=== PATIENT | male | born 1950 | race Two or more races ===

== ENCOUNTER 2025-10-03 15:57 | Emergency (ER) | payer OTHER ==
[~2025-10-03] VITALS: Ht 170.2 cm; Wt 68.0 kg
[2025-10-03] MEDS ORDERED: HYOSCYAMINE SULFATE 0.125 MG TAB.SUBL SL ONE (17:30)
[2025-10-03] MEDS ORDERED: ONDANSETRON 4 MG TAB.RAPDIS PO ONE ×2 (17:30→17:47)
[2025-10-03] MEDS ORDERED: HYOSCYAMINE SULFATE 0.125 MG TAB.SUBL ONE (17:47)
[2025-10-03 19:29] LABS: BASO % 0.1 % (0.1-1.2); EOS # 0.00 (0.04-0.54); EOS % 0.0 % (0.7-7.0); LYMPH # 0.71 (1.18-3.74); LYMPH % 8.9 % (19.3-53.1); MEAN PLATELET VOLUME 9.30 fl (9.4-12.4); MONO # 0.23 (0.24-0.82); MONO % 2.9 % (4.7-12.5); NEUT # 7.01 (1.56-6.13); NEUT % 87.8 % (34.0-71.1); RED CELL DISTRIBUTION WIDTH 12.5 % (11.6-14.4)
[2025-10-03 19:53] LABS: ALT/SGPT 22.0 U/L (12-78); AST/SGOT 16.0 U/L (15-37); BILIRUBIN TOTAL 0.76 mg/dL (0.3-1.2); BUN CREA RATIO 25.0 (7.0-25.0); CREATININE SERUM 0.68 mg/dL (0.70-1.30); GFR 113.68; GLOBULINA 3.5 G/DL (2.4-3.5); GLUCOSE FASTING 109.0 mg/dL (65-100); OSMOLALITY SERUM 280.0 MOSM/KG (275-295)
[2025-10-03] MEDS ORDERED: METRONIDAZOLE500 MG PO (21:56)
[2025-10-03] MEDS ORDERED: PROBIOTIC1 EAC2 PO (21:56)
[2025-10-03] MEDS ORDERED: PEPCID AC20 MG PO (21:56)
[2025-10-03] MEDS ORDERED: CIPRO500 MG PO (21:56)
== END 2025-10-03 21:15 | disposition home or self-care (01) ==
LOC: ER 15:58
PROVIDERS: General Practice
DX: R11.2 Nausea with vomiting, unspecified (principal); R10.9 Unspecified abdominal pain